=== PATIENT | female | born 1965 ===

== ENCOUNTER 2017-09-10 07:39 | Day surgery (SDC) | payer OTHER ==
[2017-09-10] MEDS ORDERED: Lactated Ringer's 1,000 ML IV ONE (08:09)
[2017-09-10 08:28] VITALS: TEMP 97
[2017-09-10] MEDS ORDERED: Midazolam 2 MG/2 ML VIAL ONE (09:57)
[2017-09-10] MEDS ORDERED: Propofol 10 mg/ml Inj (20 ML) ONE (09:58)
[2017-09-10 10:47] VITALS: BP 105/64; PULSE 63; RESP 14; O2SAT 100
== END 2017-09-10 11:04 | disposition home or self-care (01) ==
LOC: H.ENDO 07:39
PROVIDERS: ATTEND Internal Medicine Gastroenterology
DX: Z12.11 Encounter for screening for malignant neoplasm of colon (principal); K44.9 Diaphragmatic hernia without obstruction or gangrene; E03.9 Hypothyroidism, unspecified; G43.909 Migraine, unspecified, not intractable, without status migrainosus; K64.8 Other hemorrhoids; K29.50 Unspecified chronic gastritis without bleeding; K30 Functional dyspepsia
CPT/HCPCS: 43239; 45378; 88305; J2250; J2704; J2765; J7120